=== PATIENT | male | born 1970 | race Caucasian/White ===

== ENCOUNTER 2018-05-20 17:46 | Emergency (ER) | payer MEDICAID ==
[2018-05-20] MEDS ORDERED: Potassium Bicarbonate/Cit Ac 20 MEQ Effervescent Tab PO ONE (20:05)
--- NOTE | 2018-05-20 20:05 | EDM.PDOC ---
ED HPI GENERAL MEDICAL PROBLEM - General Chief Complaint: Gastrointestinal Problem Stated Complaint: C - DEF Time Seen by Provider: 05/20/18 18:03 Source of Information: Reports: Patient History Limitations: Reports: No Limitations - History of Present Illness INITIAL COMMENTS - FREE TEXT/NARRATIVE: 48-year-old male presents for evaluation and treatment of Clostridium difficile. Reportedly he was diagnosed with C. difficile about 10 days ago. He reports current symptoms of diarrhea and chills. He has also been feeling nauseated. No fevers or vomiting. He has not appreciated any blood in his stool. Reports he is having about 5 episodes of diarrhea per day. Reports it is very runny and foul-smelling. He took a 10 day course of Flagyl 500 mg 3 times a day. Reports no change in his symptoms since taking the Flagyl. Patient rep past surgical history of a laparoscopic cholecystectomy. Patient denies any ill contacts or any recent antibiotic use. Abdominal Pain Score (Numeric/FACES): 8 - Related Data Allergies Allergy/AdvReac Type Severity Reaction Status Date / Time No Known Allergies Allergy Verified 05/20/18 17:54 Home Meds: Home Meds Gemfibrozil 600 mg PO BID 05/20/18 [History] Hydrocodone/Acetaminophen [Hydrocodon-Acetaminophn 10-325] 1 tab PO Q4H PRN [History] Metoprolol Tartrate 25 mg PO BID 05/20/18 [History] Pantoprazole [ProTONIX] 40 mg PO BID 05/20/18 [History] Potassium Chloride 20 meq PO DAILY 05/20/18 [History] Sertraline HCl [Zoloft] 200 mg PO DAILY 05/20/18 [History] Sucralfate [Carafate] 1 gm PO BID 05/20/18 [History] Vancomycin 125 mg PO Q6H #40 cap 05/20/18 [Rx] buPROPion [buPROPion XL] 450 mg PO DAILY 05/20/18 [History] metroNIDAZOLE [Flagyl] 500 mg PO TID 05/20/18 [History] traZODone HCl [Trazodone HCl] 50 mg PO BEDTIME PRN 05/20/18 [History] Past Medical History Cardiovascular History: Reports: High Cholesterol, Hypertension Musculoskeletal History: Reports: Back Pain, Chronic Psychiatric History: Reports: Depression - Infectious Disease History Infectious Disease History: Reports: C-Difficile Social & Family History - Tobacco Use Smoking Status *Q: Never Smoker - Recreational Drug Use Recreational Drug Use: No ED ROS GENERAL - Review of Systems Review Of Systems: See Below Constitutional: Reports: Chills, Malaise. Denies: Fever GI/Abdominal: Reports: Abdominal Pain (cramping), Diarrhea (about 5 episodes per day), Nausea. Denies: Bloody Stool, Vomiting Musculoskeletal: Reports: Back Pain (chronic) ED EXAM, GI/ABD - Physical Exam Exam: See Below Exam Limited By: No Limitations General Appearance: Alert, WD/WN, No Apparent Distress Respiratory/Chest: No Respiratory Distress, Lungs Clear, Normal Breath Sounds Cardiovascular: Normal Peripheral Pulses, Regular Rate, Rhythm GI/Abdominal Exam: Soft, Non-Tender, Abnormal Bowel Sounds (hyperactive). No: Guarding, Rigid Neurological: Alert, Oriented, Normal Cognition Psychiatric: Flat Affect Skin Exam: Warm, Dry, Normal Color Course - Vital Signs Last Recorded V/S: Last Vital Signs Temp 98.1 F 05/20/18 17:52 Pulse 76 05/20/18 17:52 Resp 16 05/20/18 17:52 BP 138/92 H 05/20/18 17:52 Pulse Ox 100 05/20/18 17:52 - Orders/Labs/Meds Labs: Laboratory Tests 05/20/18 05/20/18 05/20/18 Range/Units 18:20 18:20 18:20 WBC 12.02 H (4.23-9.07) K/mm3 RBC 5.09 (4.63-6.08) M/mm3 Hgb 14.6 (13.7-17.5) gm/L Hct 41.2 (40.1-51.0) % MCV 80.9 (79.0-92.2) fl MCH 28.7 (25.7-32.2) pg MCHC 35.4 (32.2-35.5) g/dl RDW Std Deviation 43.6 (35.1-43.9) fL Plt Count 222 (163-337) K/mm3 MPV 10.1 (9.4-12.3) fl Neutrophils % (Manual) 71 H (40-60) % Band Neutrophils % 0 (0-10) % Lymphocytes % (Manual) 25 (20-40) % Atypical Lymphs % 0 % Monocytes % (Manual) 3 (2-10) % Eosinophils % (Manual) 1 (0.8-7.0) % Basophils % (Manual) 0 L (0.2-1.2) Platelet Estimate Adequate Plt Morphology Comment Normal RBC Morph Comment Normal Sodium 141 (136-145) mEq/L Potassium 3.0 L (3.5-5.1) mEq/L Chloride 105 (98-107) mEq/L Carbon Dioxide 23 (21-32) mEq/L Anion Gap 16.0 H (5-15) BUN 18 (7-18) mg/dL Creatinine 1.2 (0.7-1.3) mg/dL Est Cr Clr Drug Dosing 78.44 mL/min Estimated GFR (MDRD) > 60 (>60) mL/min BUN/Creatinine Ratio 15.0 (14-18) Glucose 87 (74-106) mg/dL Calcium 9.0 (8.5-10.1) mg/dL Magnesium 1.9 (1.8-2.4) mg/dl Total Bilirubin 0.5 (0.2-1.0) mg/dL AST 30 (15-37) U/L ALT 37 (16-63) U/L Alkaline Phosphatase 48 (46-116) U/L C-Reactive Protein < 0.2 (<1.0) mg/dL Total Protein 6.9 (6.4-8.2) g/dl Albumin 4.1 (3.4-5.0) g/dl Globulin 2.8 gm/dL Albumin/Globulin Ratio 1.5 (1-2) Meds: Medications Discontinued Medications Generic Name Dose Route Start Last Admin Trade Name Jessica PRN Reason Stop Dose Admin Potassium Bicarbonate 20 meq 05/20/18 20:05 05/20/18 20:18 Effer-K PO 05/20/18 20:06 20 meq ONETIME ONE Administration - Radiology Interpretation Free Text/Narrative:: KUB shows a normal gas bowel pattern. - Re-Assessments/Exams Free Text/Narrative Re-Assessment/Exam: 05/20/18 20:05 I reviewed the labs and imaging with the patient. He has not had a stool since coming in the ER. Plan will be to start him on some oral vancomycin as it still sounds like he likely had C. difficile. I will have him follow-up with his primary care provider next week. Offered the patient some Bentyl for his cramping and some Zofran which she declined. States he is taking a oral probiotic which she just started a day or 2 ago. Discharge instructions his documented. Departure - Departure Time of Disposition: 20:06 Disposition: Home, Self-Care 01 Condition: Fair Clinical Impression: Hypokalemia, Clostridium difficile diarrhea - Discharge Information Prescriptions: Vancomycin 125 mg PO Q6H #40 cap Instructions: Hypokalemia Referrals: Andrzej Ortega MD [Primary Care Provider] - Forms: ED Department Discharge Additional Instructions: take the vancomycin 1 125mg cap PO every 6 hours. Take with a small amount of food. Recommend clear fluids and a bland diet as tolerated. [place] diet recommendations include bread, Soup broth, rice, applesauce, toast etc. Recommend a probiotic and yogurt daily to help put good bacteria back into your colon. Follow-up with your primary care provider next week for recheck of your symptoms. Please return to the ER for symptoms change or worsen.
--- NOTE | 2018-05-21 07:03 | CR ---
Abdomen: Supine view of the abdomen was obtained. Previous lumbar spine surgery is noted. Epidural electro-stimulating wires are in place. Surgical clips are seen from prior cholecystectomy. Bowel gas pattern appears within normal limits. Calcifications are noted within the left pelvis compatible with phleboliths. Impression: 1. Incidental findings. Nothing acute is seen on supine abdominal x-ray. Diagnostic code #2
== END 2018-05-20 20:32 | disposition home or self-care (01) ==
LOC: JD.ED 17:46
DX: A04.72 Enterocolitis due to Clostridium difficile, not specified as recurrent (principal); E87.6 Hypokalemia; I10 Essential (primary) hypertension; E78.00 Pure hypercholesterolemia, unspecified; F32.9 Major depressive disorder, single episode, unspecified; Z79.899 Other long term (current) drug therapy
CPT/HCPCS: 36415; 74018; 80053; 83735; 85007; 85027; 86140; 99284; A9270